=== PATIENT | male | born 1980 | race Caucasian/White ===

== ENCOUNTER 2017-12-30 13:23 | Emergency (ER) | payer BC, SELFPAY ==
[2017-12-30 13:24] VITALS: BP 144/85; PULSE 65; RESP 16; TEMP 36.6; O2SAT 98; BMI 31.5
--- NOTE | 2017-12-30 14:37 | VDLE_ITS ---
Reason For Study: swelling, pain RIGHT LEFT CFV is compressible, spontaneous, phasic, GSV is normal. competent and demonstrates normal CFV is compressible, spontaneous, phasic, augmentation. competent, and demonstrates normal Procedure augmentation. Exam performed portable in ED. FV is compressible, spontaneous, phasic, The exam was diagnostic. competent and demonstrates normal A preliminary report was called and/or faxed augmentation. to Dr. Grey and the pt's RN. POP V is compressible, spontaneous, phasic, competent and demonstrates normal augmentation. T/P Trunk is compressible. PTV is compressible. LT PerV is compressible. Interpretation Summary 1. Left leg with no DVT. Ordering Physician: Pop Grey Performed By: Tonny Lan RVT
--- NOTE | 2017-12-30 15:05 | ED.DCSUM_ITS ---
- ER Visit Summary Date of Service: 12/30/17 Chief Complaint: Possible DVT History of Present Illness: The patient is a 37 M with left thigh pain. Started gradually over several days. He was sent from urgent care for possible DVT. He has no history of DVT or PE. No history of recent surgery or trauma. No history of immobilization or travel. He takes no medications. Non-smoker. Denies weakness or numbness. Denies injury. Denies back pain. Denies any other symptoms. Physical Examination: Vital signs unremarkable. Afebrile. Sitting comfortably. Inspection of his left leg is unremarkable. He does have some tenderness to palpation of the medial thigh over the proximal third. No palpable masses or cords. He is neurovascular intact distally. Good range of motion. Test Results: Ultrasound negative. Emergency Department Course and Treatment: Patient has good circulation. Ultrasound negative. No trauma. Nothing to suggest further imaging is necessary. This is likely myofascial pain. Motrin 3 times a day. Flexeril as needed. Follow-up with primary care. Treatment Plan: As above Disposition: Discharged Impression: 1. Left thigh pain This note was generated with [employer] dictation software. It may contain incorrect words, spelling, and punctuation that were not noted in review of the chart prior to signing ED Disposition - Plan for ED Patient: Chief Complaint: Lower Extremity Injury Instructions: Possible Causes of Low Back or Leg Pain Prescriptions: Cyclobenzaprine [Flexeril] 10 mg PO TID PRN #20 tab PRN Reason: Muscle Spasm Referrals: Faustino Ocampo MD [Primary Care Provider] -
[2017-12-30 15:18] VITALS: BP 135/82; PULSE 57; RESP 16; O2SAT 99
== END 2017-12-30 15:35 | disposition home or self-care (01) ==
LOC: ED 15:21
PROVIDERS: Emergency Provider Emergency Medicine; Family Provider Family Medicine; PCP Family Medicine
DX: M79.652 Pain in left thigh (principal); Z86.39 Personal history of other endocrine, nutritional and metabolic disease
CPT/HCPCS: 93971; 99282

== ENCOUNTER 2018-08-11 09:17 | Day surgery (SDC) | payer BC, SELFPAY ==
[2018-08-08 09:15] VITALS: BMI 29.7
--- NOTE | 2018-08-11 10:53 | CASEMGMT ---
InNEtwork facility review: [facility], [facility], [facility], [facility]. Kenzie POONN RN ACM
--- NOTE | 2018-08-11 11:02 | CL.D_ITS ---
Patient Name: JOEL LORD Study Date: 08/11/2018 Performing: Jameson Aparicio MD Ht: 68.89 inches 175 cm : 1980 Wt: 200.62 lbs 91 kg Age: 37 Gender: male BSA: 2.07 PROCEDURE(S) PERFORMED PM75-VQR/COR CLINICAL PROFILE AND INDICATIONS Indications: Suspected CAD Heart Failure: None Stress/Imaging Stress Echocardiogram: Yes Result: Positive Intermediate RiskStress Echocardiogram : Positive Intermediate Risk CAD Presentations: Stable angina. CONCLUSIONS Review of coronary artery disease involving a subtotally occluded right coronary artery, high-grade c ircumflex artery stenosis in a codominant vessel, and moderate disease noted in the mid to distal LAD . RECOMMENDATIONS Surgery consult for coronary revascularization Undetermined at this time DESCRIPTION OF PROCEDURE The patient arrived to the procedure lab. The risks and benefits of the procedure as well as a full d escription of our services here and current unavailability of surgical backup were fully explained to the patient and/or their significant other prior to the catheterization. The Timeout was completed, verifying the correct patient and procedure. The patient's procedural site was prepped and draped in the usual fashion. Local anesthetic was given subcutaneously to right radial region with Lidocaine 2% . Using a modified Seldinger technique, arterial access was obtained via the right radial artery, a 6 Fr sheath was inserted. Right Coronary Artery selective angiography was then performed in multiple v iews using a 5 Fr. 4.0 Weott catheter. Left Coronary Artery selective angiography was performed in mu ltiple views using a 5 Fr. 4.0 Weott catheter.The arterial sheath was pulled and a TR Band was applie d for hemostasis w/ 13ml air CORONARY ANGIOGRAPHY DOMINANCE: Co- Dominant LEFT HEART ASSESSMENT Left Ventricular Ejection Fraction: by Echo 60 % Normal LV wall motion LEFT MAIN: Angiographically normal LEFT ANTERIOR DECENDING ARTERY: PROX LAD: Mild luminal irregularities MID LAD: 60-70 % Stenosis CIRCUMFLEX ARTERY: MID CIRC: 95 bifurcating % Stenosis RIGHT CORONARY ARTERY: MID RCA: subtotal COLLATERAL FLOW: Collateral flow from Left to Right COMPLICATIONS No Complications PROCEDURE MEDICATIONS Versed 1 mg IV Fentanyl 50 mcg IV Versed 1 mg IV Fentanyl 25 mcg IV Baby Aspirin (81mg) 1 Tabs PO @ 08/11/2018 09:32:47 Heparin diluted in 23cc Heparinized saline. Patient given 10cc IA of this solution. 2/3 cocktail giv en 08/11/2018 10:13:04 Plavix 75 mg PO 08/11/2018 09:32:54 Verapamil 2.5mg, Ntg 100mcgs, 2000 units of Heparin diluted in 23cc Heparinized saline. Patient give n 10cc IA of this solution. 2/3 cocktail given 08/11/2018 10:13:04 SUMMARY OF HEMODYNAMIC DATA Time AIR REST ECG 09:35:05 AO 106/73 (88) SA 10:14:49 AO 116/80 (97) 10:28:28 Signed By Jameson Aparicio MD On 08/11/2018 11:00:42 Jameson Aparicio MD
== END 2018-08-11 15:10 | disposition home or self-care (01) ==
LOC: CLSP 09:18
PROVIDERS: Family Provider Family Medicine; PCP Family Medicine; Referring Provider Internal Medicine Cardiovascular Disease; Visit Provider Internal Medicine Cardiovascular Disease
DX: I25.10 Atherosclerotic heart disease of native coronary artery without angina pectoris (principal); R94.39 Abnormal result of other cardiovascular function study; M16.0 Bilateral primary osteoarthritis of hip; J45.909 Unspecified asthma, uncomplicated; E78.2 Mixed hyperlipidemia; K21.9 Gastro-esophageal reflux disease without esophagitis; Z87.442 Personal history of urinary calculi; Z79.82 Long term (current) use of aspirin; Z79.899 Other long term (current) drug therapy; Z87.891 Personal history of nicotine dependence
CPT/HCPCS: 93454; 99152; 99153; J7040; Q9967; C1769; C1894

== ENCOUNTER 2018-10-05 00:56 | Emergency (ER) | payer BC, SELFPAY ==
[2018-08-08 09:15] VITALS: BMI 29.7
[2018-10-05 00:57] VITALS: BP 123/87; PULSE 69; RESP 25; TEMP 36.6; O2SAT 97; BMI 27.7
[2018-10-05 01:00] VITALS: O2SAT 97
--- NOTE | 2018-10-05 01:14 | RAD_ITS ---
STUDY: X-RAY CHEST REASON FOR EXAM: Male, 38 years old. Chest pain TECHNIQUE: Single frontal view of the chest. COMPARISON: None. FINDINGS: Status post median sternotomy. Cardiomegaly. Low lung volumes. Pulmonary vascular congestion/edema. Bilateral pleural effusions. Basilar atelectasis/infiltrate. No pneumothorax. Surgical clips within the mediastinal region. There are diffuse degenerative changes of the visualized thoracic spine. Normal visualized ribs, clavicles, and shoulders. There is no demonstrated abnormality of the visualized soft tissue structures of the upper abdomen. RAD/Chest 1 View (Portable) IMPRESSION: Cardiomegaly. Pulmonary vascular congestion/edema. Next Bilateral pleural effusions. Bilateral basilar atelectasis/infiltrate. Electronically Signed: Michele Camp, at 2:13 EDT Tel , Service support ,
--- NOTE | 2018-10-05 01:14 | EKG12_ITS ---
Test Reason : CP Blood Pressure : / mmHG Vent. Rate : 060 BPM Atrial Rate : 060 BPM P-R Int : 158 ms QRS Dur : 092 ms QT Int : 412 ms P-R-T Axes : 018 -03 066 degrees QTc Int : 412 ms Normal sinus rhythm Moderate voltage criteria for LVH, may be normal variant Nonspecific ST and T wave abnormality Abnormal ECG Confirmed by SANKET WHITAKER, ALEXIA ([id number]), editor in chief CHRIS TRUJILLO ([id number]) on 10/07/2018 1:10:45 PM Referred By: VELIA Confirmed By:ALEXIA COLES MD
[2018-10-05 01:41] LABS: Absolute Lymphocyte Count 3.81 X10^3/ul (0.83-4.51); Absolute Neutrophil Count 6.4 X10^3/uL (2.0-7.7); Basophil# 0.08 X10^3/uL; Basophil% 0.6 % (0-1); Eosinophil# 1.46 X10^3/uL; Hematocrit 37.4 % (40-54); Hemoglobin 12.1 g/dl (13.0-16.5); Lymphocyte # 3.81 X10^3/ul (4.0); Lymphocyte % 28.7 % (19-41); Mean Corp Hgb Conc 32.4 g/gl (32-36); Mean Corpuscular Hgb 27.4 pg (27.0-32.0); Mean Corpuscular Volume 84.8 fL (80-94); Mean Platelet Vol. 9.8 fl (6.2-12.0); Monocyte# 1.46 X10^3/uL; Neutrophil # 6.43 X10^3/uL (2.7-7.7); Neutrophil % 48.5 % (47-70); POSITIVE COUNT NO; POSITIVE DIFFERENTIAL NO; POSITIVE MORPHOLOGY NO; Platelet Count 381 K/mm3 (150-450); RBC Distribution Width CV 13.3 % (11.6-14.6); RBC Distribution Width SD 40.8 fl (35.1-43.9); Red Blood Count 4.41 M/mm3 (4.6-6.2); White Blood Count 13.3 K/mm3 (4.4-11.0)
[2018-10-05 01:53] LABS: Anion Gap 6 (5-15); BUN 13 mg/dL (7-18); BUN/Creat Ratio 20.3 RATIO (10-20); Calcium,Total 8.8 mg/dL (8.5-10.1); Chloride 107 mmol/L (98-107); Creatinine, Serum 0.64 mg/dL (0.70-1.30); EST Glomerular Filtration Rate 151 mL/min (>60); Est Glom Filt Rate - Afr Amer 182 mL/min (>60); Estimated Creatinine Clearance 154.38 ml/min; Glucose 84 mg/dL (74-106); Potassium 3.8 mmol/L (3.5-5.1); Sodium Level 139 mmol/L (136-145)
--- NOTE | 2018-10-05 01:57 | CT_ITS ---
STUDY: CTA CHEST REASON FOR EXAM: Male, 38 years old. Chest pain RADIATION DOSAGE (If Supplied By Facility): CTDIvol = ( 11.45 ) mGy, DLP = ( 526.30 ) mGycm TECHNIQUE: The examination was performed with the intravenous administration of 100ML IV Isovue 370. Post-processing of the angiographic images was performed, with multiplanar reformation and 3D reconstruction. Individualized dose optimization techniques were used for this CT. COMPARISON: None. FINDINGS: Normal enhancement of the main pulmonary artery and right and left pulmonary arteries. Normal enhancement of the bilateral peripheral pulmonary arteries. There is no demonstrated pulmonary embolism. Normal thoracic aorta and visualized great vessels. There is no demonstrated aortic dissection. Cardiomegaly. Epicardial leads are present. There is coronary artery calcifications and bypass. There is a small pericardial effusion. Nonspecific subcentimeter short axis mediastinal and hilar lymph nodes. Bilateral atelectasis/scarring within the lungs. No pneumothorax. No pulmonary nodules greater than 3 mm. There is a small left pleural effusion with minimal adjacent atelectasis. There is a small to moderate right pleural effusion with adjacent atelectasis/infiltrate. Patient is status post median sternotomy. There is soft tissue stranding anterior to the median sternotomy. There is also some stranding and fluid posterior to the sternum and the mediastinum. No rim-enhancing fluid collections identified. There are degenerative changes of thoracic spine. Small amount of fluid adjacent to gallbladder. Correlate with gallbladder ultrasound. CT/CTA Chest W/WO Contrast IMPRESSION: No pulmonary embolism identified. No aortic aneurysm or dissection. Cardiomegaly. Coronary artery calcifications and CABG. Small pericardial effusion. Bilateral pleural effusions. Right basilar atelectasis/infiltrate. Scattered areas of atelectasis/scarring. Patient is status post median sternotomy. There is stranding within the soft tissues anterior and posterior to the sternum with a small amount of fluid seen posteriorly. This could be postsurgical. However a developing infectious process is not excluded. There is no rim-enhancing fluid collections identified to suggest a drainable abscess. Question tiny amount of fluid adjacent to the gallbladder. This may be further evaluated with a gallbladder ultrasound. Electronically Signed: Michele Camp, at 3:28 EDT Tel , Service support ,
[2018-10-05 02:17] LABS: Lipase 158 U/L (73-393)
[2018-10-05 02:34] LABS: AST(SGOT) 17 U/L (15-37); Alanine Aminotransfer ALT/SGPT 26 U/L (16-61); Albumin, Serum 3.7 g/dL (3.2-5.0); Alkaline Phosphatase 86 U/L (45-117); Bilirubin, Direct 0.09 mg/dL (0.00-0.30); Globulin 3.7 g/dL (2.2-4.2); Protein, Total 7.4 g/dL (6.4-8.2)
[2018-10-05 03:00] VITALS: PULSE 62; RESP 24; O2SAT 98
[2018-10-05 03:30] VITALS: O2SAT 98
[2018-10-05 04:13] VITALS: BP 119/85; PULSE 72; RESP 25; O2SAT 98
--- NOTE | 2018-10-05 04:33 | ED.VISSUMM ---
- ER Visit Summary Date of Service: 10/05/18 Chief Complaint: Chest pain History of Present Illness: The patient is a 38 M who presents with chest pain. The patient recently had a four-vessel coronary bypass at [facility] on August 28. He had been doing relatively well. About 6 hours before presentation he developed lower chest upper abdomen epigastric cramping pain. This actually resolved after arrival here to the emergency department. He does report associated shortness of breath and nausea. No fever. No cough. No vomiting. No diarrhea. He also complained of sharp mid posterior thoracic pain. He has been having some of this ever since his surgery. Physical Examination: Afebrile vitals unremarkable No distress Moist mucous membranes Heart regular rate and rhythm Lungs are clear Abdomen soft nontender nondistended Extremities he does have some tenderness on the right leg where he had the saphenous vein harvested there is no edema he has 2+ radial pulses he has no calf tenderness or leg edema His surgical scars are clean dry and intact Alert Test Results: EKG shows normal sinus rhythm at a rate of [address] depression in leads I and aVL diffuse T wave flattening this is overall similar to prior. Labs are notable for white count of 13.3, hemoglobin 12.1. Hepatic function normal. Lipase normal. Troponin negative. Chest x-ray shows cardiomegaly, bilateral effusions, pulmonary congestion and edema. CTA of the chest shows no evidence of PE, no evidence of aortic dissection there are bilateral pleural effusions and right basilar atelectasis versus infiltrate. There is stranding anterior and posterior to the sternum and a small amount of fluid infection cannot be ruled out. There is a questionable tiny amount of fluid adjacent to the gallbladder. Emergency Department Course and Treatment: Workup as above. Patient does have a leukocytosis. He has possible pneumonia and postsurgical infection cannot be ruled out at the sternum. There is also a tiny amount of fluid possibly around the gallbladder although he does not present as acute cholecystitis hepatic function lipase are normal. He was treated with IV Zosyn and vancomycin for potential HCAP. I did feel he should be transferred back to where he can have consultation from his surgeon. Patient was transferred to [facility]. Treatment Plan: [] Disposition: Transfer Impression: Chest pain CHF Possible sternotomy infection Possible HCAP This note was generated with [employer] dictation software. It may contain incorrect words, spelling, and punctuation that were not noted in review of the chart prior to signing ED Disposition - Plan for ED Patient: Referrals: Faustino Ocampo MD [Primary Care Provider] -
--- NOTE | 2018-10-05 04:43 | ED.DCSUM_ITS ---
- ER Visit Summary Date of Service: 10/05/18 Chief Complaint: Chest pain History of Present Illness: The patient is a 38 M who presents with chest pain. The patient recently had a four-vessel coronary bypass at [facility] on August 28. He had been doing relatively well. About 6 hours before prese ntation he developed lower chest upper abdomen epigastric cramping pain. This actually resolved after arrival here to the emergency department. He does report associated shortness of breath and nausea. No fever. No cough. No vomiting. No diarrhea. He also complained of sharp mid posterior thoracic pain. He has been having some of this ever since his surgery. Physical Examination: Afebrile vitals unremarkable No distress Moist mucous membranes Heart regular rate and rhythm Lungs are clear Abdomen soft nontender nondistended Extremities he does have some tenderness on the right leg where he had the saphenous vein harvested there is no edema he has 2+ radial pulses he has no calf tenderness or leg edema His surgical scars are clean dry and intact Alert Test Results: EKG shows normal sinus rhythm at a rate of [address] depression in leads I and aVL diffuse T wave flattening this is overall similar to prior. Labs are notable for white count of 13.3, hemoglobin 12.1. Hepatic function normal. Lipase normal. Troponin negative. Chest x-ray shows cardiomegaly, bilateral effusions, pulmonary congestion and edema. CTA of the chest shows no evidence of PE, no evidence of aortic dissection there are bilateral pleural effusions and right basilar atelectasis versus infiltrate. There is stranding anterior and posterior to the sternum and a small amount of fluid infection cannot be ruled out. There is a questionable tiny amount of fluid adjacent to the gallbladder. Emergency Department Course and Treatment: Workup as above. Patient does have a leukocytosis. He has possible pneumonia and postsurgical infection cannot be ruled out at the sternum. There is also a tiny amount of fluid possibly around the gallbladder although he does not present as acute cholecystitis hepatic function lipase are normal. He was treated with IV Zosyn and vancomycin for potential HCAP. I did feel he should be transferred back to where he can have consultation from his surgeon. Patient was transferred to [facility]. Treatment Plan: [] Disposition: Transfer Impression: Chest pain CHF Possible sternotomy infection Possible HCAP This note was generated with [employer] software. It may contain incorrect words, spelling, and punctuation that were not noted in review of the chart prior to signing ED Disposition - Plan for ED Patient: Referrals: Faustino Ocampo MD [Primary Care Provider] -
[2018-10-05] MEDS: Morphine 4 MG/ML Syringe IV (05:27)
[2018-10-05 05:38] VITALS: PULSE 78
== END 2018-10-05 05:38 | disposition short-term general hospital (02) ==
PROVIDERS: Emergency Provider Emergency Medicine; Family Provider Family Medicine; PCP Family Medicine
DX: R07.9 Chest pain, unspecified (principal); I11.0 Hypertensive heart disease with heart failure; I50.9 Heart failure, unspecified; I25.10 Atherosclerotic heart disease of native coronary artery without angina pectoris; E78.00 Pure hypercholesterolemia, unspecified
CPT/HCPCS: 71045; 71275; 80048; 80076; 83690; 84484; 85025; 93005; 96365; 96367; 96375; 99285; J7050; Q9967; A4216

== ENCOUNTER → 2020-05-09 10:30 | Outpatient (CLI) | payer BC, SELFPAY | PROVIDERS: PCP Family Medicine; Referring Provider Family Medicine; Visit Provider Family Medicine | DX: U07.1 COVID-19 (principal) | CPT/HCPCS: 87635; C9803; U0003 ==

== ENCOUNTER 2020-10-27 01:32 | Emergency (ER) | payer BC, SELFPAY ==
[2020-10-27 01:33] VITALS: BP 143/79; PULSE 59; RESP 14; TEMP 35.8; O2SAT 97; BMI 33.5
--- NOTE | 2020-10-27 01:40 | CT_ITS ---
STUDY: CTA HEAD AND NECK WITH CONTRAST REASON FOR EXAM: Male, 40 years old. headache RADIATION DOSAGE (If Supplied By Facility): CTDIvol = ( 26.93 ) mGy, DLP = ( 1558.19 ) mGycm TECHNIQUE: CT angiography was performed with a multi-detector CT scanner. Data acquisition was obtained from the skull base through the vertex following intravenous administration of IV 100mL Isovue-370. MIP images were reconstructed from the axial data set. Post-processing of the angiographic images was performed, with multiplanar reformation and 3D reconstruction. Individualized dose optimization techniques were used for this CT. COMPARISON: No relevant priors. FINDINGS: Normal bilateral petrous carotid arteries. Normal right cavernous carotid artery with a normal supraclinoid bifurcation. Normal left cavernous carotid artery with a normal supraclinoid bifurcation. Normal right A1 segments of the anterior cerebral artery. Normal left A1 segments of the anterior cerebral artery. Normal intact anterior communicating artery (ACOM). Normal bilateral A2 segments of the anterior cerebral arteries. Normal right M1 and M2 segments of the middle cerebral arteries, with a normal M1 bifurcation. Normal left M1 and M2 segments of the middle cerebral arteries, with a normal M1 bifurcation. Normal right posterior communicating artery (PCOM). Normal left posterior communicating artery (PCOM). Normal bilateral vertebral arteries. Normal basilar artery with a normal basilar bifurcation. The visualized bilateral superior cerebellar (SCA) arteries are normal. Normal bilateral P1, P2 and visualized P3 segments of the posterior cerebral arteries. There is no demonstrated aneurysm of the [place]. There is no demonstrated abnormality of the visualized brain. AORTIC ARCH: Normal visualized aortic arch. Normal origins of the brachiocephalic, left common carotid, and left subclavian arteries. RIGHT CAROTID ARTERIES: Normal right common carotid artery (CCA). Normal right common carotid bulb. Normal origin of the right internal carotid (ICA) artery without a hemodynamically significant stenosis. Normal visualized cervical portion of the right internal carotid artery. Normal origin of the right external carotid artery (ECA). LEFT CAROTID ARTERIES: Normal left common carotid artery (CCA). There is moderate noncalcified atherosclerotic plaque formation with moderate narrowing of the carotid bulb. Mild plaque at the origin and proximal left internal carotid artery with no narrowing. Normal visualized cervical portion of the left internal carotid artery. Normal origin of the left external carotid artery (ECA). VERTEBRAL ARTERIES: Normal bilateral vertebral arteries. CT/CTA Head AND Neck W/ Contrast IMPRESSION: CTA neck: Moderate plaque at the level of the left carotid luke with approximately 50-60% diameter narrowing. Remainder of the CT angiogram of the neck reveal no other sites of stenosis, occlusion or dissection. CTA HEAD: Normal CT angiogram of the brain with no evidence of stenosis, occlusion or aneurysm involving the [place]. Electronically Signed: Leticia Contreras MD at 2:35 EDT , Service support ,
--- NOTE | 2020-10-27 01:41 | ED.DCSUM_ITS ---
History of Present Illness Chief Complaint: Headache Informant: Patient Narrative: 40-year-old male with past medical history of asthma and familial hyperlipidemia presents with concern for headache. States it is behind his right eye. States that he had tingling of his left fingertips as well as tingling of his left face. States this is typical of his prior migraines given his ocular symptoms as well as this tingling. Patient does have significant cardiac atherosclerotic disease so he felt he would should come and get this checked out. States that the tingling lasted seconds and is now resolved. Denies any visual changes. Denies any chest pain, shortness of breath, nausea, vomiting, diaphoresis. Past Medical History - Allergies and Home Meds Allergies/Adverse Reactions: Allergies atorvastatin [From Lipitor] Allergy (Verified 10/05/18 01:03) Unknown citalopram [From Celexa] Allergy (Verified 10/05/18 01:03) Unknown Primary Care Physician: Faustino Ocampo MD [Primary Care Provider] - Prior records reviewed: Yes Past Medical History: - - Familal hyperlipidemia and asthma Surgical History: coronary bypass surgery Lives: Spouse/ Significant Other Smoking Status: Former smoker Alcohol: None Drugs: None Review of Systems General: Denies: Chills, Fever, Sweats Eyes: Denies: Visual changes - bilaterally, Diplopia ENT: Denies: Rhinorrhea, Sore throat Cardiovascular: Denies: Chest pain, Palpitations Respiratory: Denies: Dyspnea, Cough, Dyspnea on exertion Gastrointestinal: Denies: Abdominal pain, Nausea, Vomiting, Diarrhea, Melena, Hematochezia Genitourinary: Denies: Dysuria, Hematuria, Frequency Musculoskeletal: Denies: Back pain, Extremity Pain Skin: Denies: Rash, Wounds Neurological: Reports: Headache. Denies: Weakness, Numbness Physical Exam Vital Signs/Narrative: Vital Signs Temp Pulse Resp BP Pulse Ox 10/27/20 01:33 96.5 F L 59 L 14 143/79 H 97 Inital Vital Signs reviewed: Yes General: Well nourished, Well developed, No Acute Distress Head: Normocephalic, Atraumatic Eyes: Perrl, EOMI ENT: Moist mucous membranes, No rhinorrhea Neck: Supple, Nontender Cardiovascular: Regular rate, Regular rhythm, No murmurs Respiratory: No distress, CTA bilaterally, Chest nontender Abdomen: Soft, Nontender, Nondistended, Normal bowel sounds Back: Nontender, Normal Inspection Extremities: Nontender, No edema Skin: Normal color, No rash Neurological: Alert, Oriented x3, Cranial nerves II-XII grossly intact, Normal Strength, Normal Sensation Psychological: Normal affect, Normal Mood Diagnostic/Tx/Re-eval Clinical Impression(s) from Imaging Studies Head/Neck CTA 10/27/20 01:40 IMPRESSION: CTA neck: Moderate plaque at the level of the left carotid luke with approximately 50-60% diameter narrowing. Remainder of the CT angiogram of the neck reveal no other sites of stenosis, occlusion or dissection. CTA HEAD: Normal CT angiogram of the brain with no evidence of stenosis, occlusion or aneurysm involving the [place]. Electronically Signed: Leticia Contreras MD at 2:35 EDT , Service support , Laboratory Data 10/27/20 10/27/20 01:40 01:40 WBC 11.6 H RBC 4.78 Hgb 14.0 Hct 42.5 MCV 88.9 MCH 29.3 MCHC 32.9 RDW Std Deviation 41.3 RDW Coeff of Alessandra 12.6 Plt Count 258 MPV 9.8 Immature Gran % (Auto) 0.400 Neut % (Auto) 54.3 Lymph % (Auto) 31.0 [place] % (Auto) 11.3 H Eos % (Auto) 2.5 Baso % (Auto) 0.5 Absolute Neuts (auto) 6.3 Absolute Lymphs (auto) 3.58 Nucleated RBC % 0 Sodium 140 Potassium 3.7 Chloride 107 Carbon Dioxide 28.0 Anion Gap 5 BUN 16 Creatinine 0.72 Estim Creat Clear Calc 134.58 Est GFR (MDRD) Af Amer 157 Est GFR (MDRD) Non-Af 130 BUN/Creatinine Ratio 22.2 H Glucose 116 H Calcium 8.7 - Medical Decision Making Patient appears well and nontoxic. No focal deficit on exam. Patient did have paresthesias which have resolved. States they are typical of his migraines. CTA was done which shows a plaque of the left carotid bulb with 50% narrowing. No evidence of acute infarct or LVO. Lab work within normal limits. Following negative head CT patient was given 1 L normal saline, Toradol, Reglan, Benadryl. On reevaluation at 0315 patient is feeling improved. Will be discharged home to follow-up with his primary care provider. Made aware of his carotid plaque and will follow up with his primary care provider accordingly. Stable at time of discharge. Impression: 1. Acute migraine 2. Carotid plaque with 50% stenosis ED Disposition - Plan for ED Patient: Disposition: Home or Assisted Living Instructions: ED, Migraine (Classical) Referrals: Faustino Ocapmo MD [Primary Care Provider] - 2 Days Additional Instructions: A plaque, which is calcification of the artery, was found in the left carotid artery. It is currently causing a reduction in size of 50-60%. This is not likely the cause of your symptoms and does not require emergent treatment but should be made aware to your PCP so they can maintain routine surveillance.
[2020-10-27 01:45] LABS: Absolute Lymphocyte Count 3.58 X10^3/uL (0.83-4.51); Absolute Neutrophil Count 6.3 X10^3/uL (2.0-7.7); Basophil# 0.06 X10^3/uL; Basophil% 0.5 % (0-1); Eosinophil# 0.29 X10^3/uL; Eosinophils% 2.5 % (0-5); Hematocrit 42.5 % (40-54); Lymphocyte # 3.58 X10^3/ul (0.83-4.51); Mean Corp Hgb Conc 32.9 g/dL (32-36); Mean Corpuscular Hgb 29.3 pg (27.0-32.0); Mean Corpuscular Volume 88.9 fL (80-94); Mean Platelet Vol. 9.8 fl (6.2-12.0); Monocyte# 1.31 X10^3/uL; Monocyte% 11.3 % (0-10); NRBC Flagged by Analyzer 0 % (0-5); Neutrophil # 6.27 X10^3/uL (2.7-7.7); Neutrophil % 54.3 % (47-70); Platelet Count 258 K/mm3 (150-450); RBC Distribution Width CV 12.6 % (11.6-14.6); RBC Distribution Width SD 41.3 fl (35.1-43.9); Red Blood Count 4.78 M/mm3 (4.6-6.2); White Blood Count 11.6 K/mm3 (4.4-11.0)
[2020-10-27 01:58] LABS: Anion Gap 5 (5-15); BUN 16 mg/dL (7-18); BUN/Creat Ratio 22.2 RATIO (10-20); Calcium,Total 8.7 mg/dL (8.5-10.1); Chloride 107 mmol/L (98-107); Creatinine, Serum 0.72 mg/dL (0.70-1.30); EST Glomerular Filtration Rate 130 mL/min (>60); Est Glom Filt Rate - Afr Amer 157 mL/min (>60); Estimated Creatinine Clearance 134.58 ml/min; Glucose 116 mg/dL (74-106); Potassium 3.7 mmol/L (3.5-5.1); Sodium Level 140 mmol/L (136-145)
[2020-10-27] MEDS: DiphenhydrAMINE 50 MG/ML Syringe 25 MG IV (02:48)
[2020-10-27] MEDS: Ketorolac 15 MG/ML Vial IV (02:48)
[2020-10-27] MEDS: Metoclopramide 10 MG/2 ML Vial 5 MG IV (02:49)
[2020-10-27] MEDS: 0.9% Normal Saline 1,000 ML 999 ML IV (02:50)
[2020-10-27 03:58] VITALS: BP 132/60; PULSE 62; RESP 18; O2SAT 97
== END 2020-10-27 04:00 | disposition home or self-care (01) ==
PROVIDERS: Emergency Provider Emergency Medicine; PCP Family Medicine
DX: G43.909 Migraine, unspecified, not intractable, without status migrainosus (principal); I65.22 Occlusion and stenosis of left carotid artery; J45.909 Unspecified asthma, uncomplicated; E78.49 Other hyperlipidemia; Z79.82 Long term (current) use of aspirin; Z79.02 Long term (current) use of antithrombotics/antiplatelets; Z79.899 Other long term (current) drug therapy; Z87.891 Personal history of nicotine dependence
CPT/HCPCS: 70496; 70498; 80048; 85025; 96361; 96374; 96375; 99283; J7030; Q9967; A4216